=== PATIENT | female | born 1960 | race African-American/Black ===

== ENCOUNTER 2021-08-07 14:44 | Emergency (ER) | payer MEDICARE, MEDICAID | END 2021-08-07 16:37 | disposition left against medical advice (07) | LOC: ER 14:44 | DX: R50.9 Fever, unspecified (principal); Z53.21 Procedure and treatment not carried out due to patient leaving prior to being seen by health care provider ==

== ENCOUNTER → 2024-02-27 | Outpatient (CLI) | payer OTHER | END | disposition home or self-care (01) | LOC: RAD 12:46 | PROVIDERS: ATTEND Nurse Practitioner Family | DX: M19.012 Primary osteoarthritis, left shoulder (principal); M19.011 Primary osteoarthritis, right shoulder | CPT/HCPCS: 73030-LT; 73030-RT ==

== ENCOUNTER → 2024-11-14 | Outpatient (CLI) | payer OTHER | END | disposition home or self-care (01) | LOC: RAD 14:14 | PROVIDERS: ATTEND Student in an Organized Health Care Education/Training Program | DX: R07.81 Pleurodynia (principal); M47.814 Spondylosis without myelopathy or radiculopathy, thoracic region | CPT/HCPCS: 71110 ==

== ENCOUNTER → 2025-02-26 | Day surgery (SDC) | payer OTHER ==
[~2025-02-26] VITALS: Ht 170.2 cm; Wt 78.5 kg
[2025-02-26] VITALS (9 sets, daily range): BP systolic 136–162; BP diastolic 81–117; PULSE 69–84; RESP 16–18; TEMP 97.2–97.8; O2SAT 93–97
[~2025-02-26] MED LIST: AMLO-170 PO; APIX5TAB PO; ATOR40TA50 PO; GABA100C7 PO; GLIP5TAB19 PO; LINA145C PO; LISI20TA21 PO; LOSA-400 PO; METF10007 PO; MONT-38 PO; NS 1000ML 1,000 ML IV ONE; OXYB5TAB13 PO; PANT40TA6 PO; SPIR25TA5 PO
[2025-02-26 09:14] LABS: BASOPHIL # 0.1 10^3/uL (0.0-0.1); BASOPHIL % 0.8 % (0.1-1.2); EOSINOPHIL # 0.2 10^3/uL (0.0-0.2); EOSINOPHIL % 3.3 % (0.0-5.0); HEMATOCRIT(ML) 32.2 % (36.0-46.0); IG % 0.00 % (0.00-0.50); LYMPHOCYTES # 2.49 10^3/uL1 (1.0-4.8); LYMPHOCYTES % 40.9 % (24.0-44.0); MEAN CORP HGB 32.5 pg (26-34); MEAN CORP HGB CONCENTRATION 30.4 g/dL (33-36.5); MEAN CORP VOLUME 106.6 fL (78-100); MONOCYTES # 0.5 10^3/uL (0.3-0.8); MONOCYTES % 7.4 % (5.0-12.0); NEUTROPHIL # 2.9 10^3/uL (1.8-7.7); NEUTROPHILS % 47.6 % (41.0-85.0); RED BLOOD CELL 3.02 10^6/uL (4.00-5.20); RED CELL DISTRIBUTION WIDTH 12.6 % (11.5-14.5); WHITE BLOOD CELL 6.1 10^3/uL (4.5-11.0)
[2025-02-26 09:20] LABS: INR 1.1; PROTHROMBIN PROTIME 11.3 SEC (9.3-11.6)
[2025-02-26 09:28] LABS: ALANINE AMINOTRANSFERASE(ML) 19.0 U/L (12-78); ALBUMIN(ML) 3.7 g/dL (3.4-5.0); CREATININE SERUM 2.36 mg/dL (0.59-1.40); EST GFR, NON-AA 20.8 (>/=60)
== END | disposition home or self-care (01) ==
LOC: SDC 08:12
PROVIDERS: ATTEND Internal Medicine
DX: I25.110 Atherosclerotic heart disease of native coronary artery with unstable angina pectoris (principal); R07.2 Precordial pain; N28.9 Disorder of kidney and ureter, unspecified; E11.9 Type 2 diabetes mellitus without complications; I10 Essential (primary) hypertension; K21.9 Gastro-esophageal reflux disease without esophagitis; Z79.84 Long term (current) use of oral hypoglycemic drugs; Z88.0 Allergy status to penicillin; Z79.01 Long term (current) use of anticoagulants; Z88.8 Allergy status to other drugs, medicaments and biological substances; Z79.899 Other long term (current) drug therapy
CPT/HCPCS: 93458; 80053; 85025; 36415; 85610; 99152; 93005; J1644 ×2; A6258 ×3; C1887 ×2; J3490; J2250; J3010; Q9967; A4618; E0617; C1769; C1766; 76937; Q9966